=== PATIENT | female | born 1990 | race African-American/Black ===

== ENCOUNTER 2016-03-28 13:23 | Emergency (ER) | payer MEDICAID ==
--- NOTE | 2016-03-28 14:07 | NUR ---
PATIENT LEFT WITHOUT BEING SEEN BY DR. JIMENEZ. NO FURTHER CARE PROVIDED FOR PATIENT.
== END 2016-03-28 14:07 | disposition left against medical advice (07) ==
LOC: MED 13:23
DX: R11.10 Vomiting, unspecified (principal); Z53.21 Procedure and treatment not carried out due to patient leaving prior to being seen by health care provider

== ENCOUNTER 2016-03-28 18:51 | Emergency (ER) | payer MEDICAID ==
[~2016-03-28] VITALS: Ht 162.6 cm; Wt 49.9 kg
[2016-03-28 19:21] VITALS: BP 132/89
--- NOTE | 2016-03-28 21:12 | NUR ---
Patient ambulated to bed 02.
--- NOTE | 2016-03-28 21:13 | NUR ---
25 Y/O F HERE C/O ABD PAIN, N/V/D AND GENERAL WEAKNESS X 5 DAYS. DENIES ANY FEVER OR SOB. ER MD NOTIFIED. 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 O2 SAT 100 IN RA.
--- NOTE | 2016-03-28 21:15 | NUR ---
Dr. Reynoso evaluating patient at bedside.
[2016-03-28] MEDS ORDERED: NACL 0.9% 1,000 ML IV ONE (21:25)
[2016-03-28] MEDS ORDERED: ONDANSETRON 4 MG/2 ML VIAL IVP ONE (21:25)
[2016-03-28] MEDS ORDERED: MORPHINE SULFATE 2 MG/ML SYR IVP ONE (21:25)
[2016-03-28] MEDS ORDERED: NACL 0.9% 500 ML IV ONE (23:00)
[2016-03-28] MEDS ORDERED: oxyCODONE/APAP 5/325 MG 1 TAB TAB PO ONE (23:00)
[2016-03-28] MEDS ORDERED: POTASSIUM CHLORIDE 10 MEQ TABER PO ONE (23:25)
[2016-03-29 00:10] VITALS: BP 127/70
--- NOTE | 2016-03-29 00:10 | NUR ---
Patient discharged with v/s stable. Written and verbal after care instructions given and explained. Patient alert, oriented and verbalized understanding of instructions. Ambulatory with steady gait. All questions addressed prior to discharge. ID band removed. Patient advised to follow up with PMD OR RETURN TO ER IF CONDITION WORSENS Rx of ZOFRAN given. Patient educated on indication of medication including possible reaction and side effects. Opportunity to ask questions provided and answered.
== END 2016-03-29 00:10 | disposition home or self-care (01) ==
LOC: MED 18:55
DX: N93.9 Abnormal uterine and vaginal bleeding, unspecified (principal); A08.4 Viral intestinal infection, unspecified; F17.210 Nicotine dependence, cigarettes, uncomplicated; Z71.6 Tobacco abuse counseling
CPT/HCPCS: 36415; 80053; 81001; 81025; 83690; 85025; 96361; 96374; 96375; 99284; J2270; J2405; J7030

== ENCOUNTER 2016-07-04 13:22 | Emergency (ER) | payer MEDICAID ==
[~2016-07-04] VITALS: Ht 162.6 cm; Wt 49.9 kg
[2016-07-04 14:14] VITALS: BP 111/67
--- NOTE | 2016-07-04 15:20 | NUR ---
PATIENT LEFT WITHOUT BEING SEEN BY DR. MENDIOLA. NO FURTHER CARE PROVIDED FOR PATIENT.
== END 2016-07-04 15:20 | disposition left against medical advice (07) ==
LOC: MED 13:22
DX: R10.9 Unspecified abdominal pain (principal); Z53.21 Procedure and treatment not carried out due to patient leaving prior to being seen by health care provider

== ENCOUNTER 2018-01-16 11:35 | Emergency (ER) | payer MEDICAID ==
[~2018-01-16] VITALS: Ht 162.6 cm; Wt 49.9 kg
[2018-01-16 11:45] VITALS: BP 143/85
[2018-01-16] MEDS ORDERED: NACL 0.9% 1,000 ML IV SCH (12:13)
[2018-01-16] MEDS ORDERED: ONDANSETRON 4 MG/2 ML VIAL IVP ONE (12:15)
[2018-01-16 12:40] LABS: BASOPHILS % (AUTO) 0.3 % (0.0-2.0); EOSINOPHILS % (AUTO) 0.1 % (0.0-4.0); HEMATOCRIT 39.5 % (36-48); HEMOGLOBIN 13.2 g/dL (12.0-16.0); LYMPHOCYTES # (AUTO) 1.3 K/uL (2.5-16.5); LYMPHOCYTES % (AUTO) 12.7 % (20.5-51.1); MEAN CORPUSCULAR HEMOGLOBIN 31 pg (27-31); MEAN CORPUSCULAR HGB CONC 34 g/dL (33-37); MEAN CORPUSCULAR VOLUME 93.3 fL (80-94); MONOCYTES # (AUTO) 0.5 K/uL (0.8-1.0); MONOCYTES % (AUTO) 4.5 % (1.7-9.3); NEUTROPHILS # (AUTO) 8.5 K/uL (1.8-7.7); NEUTROPHILS % (AUTO) 82.4 % (42.2-75.2); PLATELET COUNT (AUTO) 237 K/uL (140-450); RED BLOOD CELL COUNT(AUTO) 4.23 MIL/uL (4.20-5.40); RED CELL DISTRIBUTION WIDTH 11.7 % (11.6-13.7); WHITE BLOOD COUNT (AUTO) 10.3 K/uL (4.8-10.8)
[2018-01-16 12:48] LABS: BILIRUBIN,URINE SMALL (NEGATIVE); BLOOD, URINE NEGATIVE (NEGATIVE); COLOR,URINE YELLOW (YELLOW); LEUKOCYTE ESTERASE ,URINE NEGATIVE (NEGATIVE); NITRITE, URINE NEGATIVE (NEGATIVE); UGLUCOSE NEGATIVE (NEGATIVE)
[2018-01-16 12:51] LABS: RBC,URINE 0-5 (RARE) /HPF (0-5); WBC,URINE 0-5 (RARE) /HPF (0-5)
[2018-01-16 12:52] LABS: APPEARANCE,URINE SLIGHTLY HAZY (CLEAR)
[2018-01-16 13:16] LABS: CARBON DIOXIDE 24.8 mmol/L (21-32); CREATININE 0.7 mg/dL (0.6-1.3); POTASSIUM 3.8 mmol/L (3.5-5.1)
[2018-01-16 13:22] LABS: ALBUMIN 4.1 g/dL (3.4-5.0); TOTAL BILIRUBIN 0.7 mg/dL (0.0-1.0)
[2018-01-16] MEDS ORDERED: ACETAMINOPHEN EXTRA STRENGTH 500 MG TAB PO ONE (14:45)
[2018-01-16 15:10] VITALS: BP 138/80
== END 2018-01-16 15:10 | disposition home or self-care (01) ==
LOC: MED 11:35
DX: O21.8 Other vomiting complicating pregnancy (principal); O26.899 Other specified pregnancy related conditions, unspecified trimester; R10.9 Unspecified abdominal pain; R42 Dizziness and giddiness; R53.1 Weakness; F17.210 Nicotine dependence, cigarettes, uncomplicated
CPT/HCPCS: 36415; 76801; 80053; 81001; 81025; 83690; 84702; 85025; 96361; 96374; 99284; J2405; J7030; Q0092

== ENCOUNTER 2018-02-10 12:31 | Emergency (ER) | payer MEDICAID ==
[~2018-02-10] VITALS: Ht 162.6 cm; Wt 47.6 kg
[2018-02-10 12:46] VITALS: BP 114/75
--- NOTE | 2018-02-10 13:15 | NUR ---
PATIENT AMBULATED TO BED 5
[2018-02-10 13:19] LABS: BASOPHILS % (AUTO) 0.4 % (0.0-2.0); EOSINOPHILS % (AUTO) 0.2 % (0.0-4.0); HEMATOCRIT 35.2 % (36-48); HEMOGLOBIN 11.9 g/dL (12.0-16.0); LYMPHOCYTES # (AUTO) 1.8 K/uL (2.5-16.5); LYMPHOCYTES % (AUTO) 22.2 % (20.5-51.1); MEAN CORPUSCULAR HEMOGLOBIN 31 pg (27-31); MEAN CORPUSCULAR HGB CONC 34 g/dL (33-37); MEAN CORPUSCULAR VOLUME 92.7 fL (80-94); MONOCYTES # (AUTO) 0.4 K/uL (0.8-1.0); MONOCYTES % (AUTO) 5.2 % (1.7-9.3); NEUTROPHILS # (AUTO) 5.8 K/uL (1.8-7.7); PLATELET COUNT (AUTO) 215 K/uL (140-450); RED CELL DISTRIBUTION WIDTH 11.6 % (11.6-13.7); WHITE BLOOD COUNT (AUTO) 8.1 K/uL (4.8-10.8)
[2018-02-10 13:28] LABS: APPEARANCE,URINE CLOUDY (CLEAR); BILIRUBIN,URINE NEGATIVE (NEGATIVE); BLOOD, URINE TRACE-I (NEGATIVE); COLOR,URINE YELLOW (YELLOW); LEUKOCYTE ESTERASE ,URINE NEGATIVE (NEGATIVE); NITRITE, URINE NEGATIVE (NEGATIVE); UGLUCOSE NEGATIVE (NEGATIVE)
[2018-02-10 13:30] LABS: RBC,URINE 0-5 (RARE) /HPF (0-5)
[2018-02-10 13:31] LABS: WBC,URINE 0-5 (RARE) /HPF (0-5)
[2018-02-10 13:45] LABS: ALBUMIN 3.6 g/dL (3.4-5.0); ANION GAP 12.2 (8-16); CARBON DIOXIDE 27.3 mmol/L (21-32); CREATININE 0.7 mg/dL (0.6-1.3); POTASSIUM 3.5 mmol/L (3.5-5.1); TOTAL BILIRUBIN 0.3 mg/dL (0.0-1.0)
--- NOTE | 2018-02-10 13:48 | NUR ---
Dr. Godinez evaluating patient at bedside.
--- NOTE | 2018-02-10 13:50 | NUR ---
27f bib boyfriend with c/o 09/21 umbilical region sharp pain radiating to epigastric x1 wk with constipation, non bloody vomiting, headache, subjective fevers x 2 wks. Pt sts is 10-11wks , A2 LMP 11/21/17. Pt denies any vaginal bleeding. Pt is aox4 to person, place, time, and situation. RR are even and unlabored. NAD. Awating er md pena. Will continue to monitor.
[2018-02-10 13:55] LABS: BILIRUBIN,DIRECT 0.1 mg/dL (0.0-0.3)
--- NOTE | 2018-02-10 14:03 | NUR ---
L&D RN at bedside for heart tones.
--- NOTE | 2018-02-10 14:10 | NUR ---
unable to detect heart tones via doppler. notified er md jarquin.
[2018-02-10 16:58] VITALS: BP 114/75
--- NOTE | 2018-02-10 16:59 | NUR ---
Patient discharged with v/s stable. Written and verbal after care instructions given and explained. Patient verbalized understanding. Ambulatory with steady gait. All questions addressed prior to discharge. Advised to follow up with PMD.
== END 2018-02-10 16:50 | disposition home or self-care (01) ==
LOC: MED 12:31
DX: O26.891 Other specified pregnancy related conditions, first trimester (principal); O21.9 Vomiting of pregnancy, unspecified; R10.30 Lower abdominal pain, unspecified; R10.13 Epigastric pain; K59.00 Constipation, unspecified; Z3A.11 11 weeks gestation of pregnancy
CPT/HCPCS: 36415; 76817; 80053; 80076; 81001; 81025; 83690; 84702; 85025; 86900; 86901; 99284; Q0092

== ENCOUNTER 2021-08-14 08:05 | Emergency (ER) | payer MEDICAID ==
[~2021-08-14] VITALS: Ht 162.6 cm; Wt 51.7 kg
[2021-08-14 08:12] VITALS: BP 138/77
--- NOTE | 2021-08-14 08:16 | NUR ---
DR MOREL IN TRIAGE FOR EVAL
[2021-08-14] MEDS ORDERED: ONDANSETRON 4 MG/2 ML VIAL IVP ONE (08:20)
[2021-08-14] MEDS ORDERED: NACL 0.9% 1,000 ML IV ONE (08:20)
--- NOTE | 2021-08-14 08:21 | NUR ---
30 Y/O FEMALE BIBS FROM HOME, C/O N/V ABD PAIN AND HAX 3 DAYS. DENIES DIARRHEA. NO BLOOD IN VOMIT OR STOOL. PT REPORTS DIFFUSE UPPER ABDOMINAL PAIN 09/21. DENIES TRAUMA. A/OX4, GCS-15; UNLABORED BREATHING, SPEAKING IN FULL SENTENCES; AMBULATORY WITHOUT ASSISTANCE. NKA PMH: DENIES
--- NOTE | 2021-08-14 08:25 | NUR ---
SKIVER BLOCKERS AT BEDSIDE
[2021-08-14 08:38] LABS: BASOPHILS % (AUTO) 0.3 % (0.0-2.0); EOSINOPHILS % (AUTO) 0.1 % (0.0-4.0); HEMATOCRIT 42.4 % (36-48); HEMOGLOBIN 14.5 g/dL (12.0-16.0); LYMPHOCYTES # (AUTO) 1.6 K/uL (2.5-16.5); MEAN CORPUSCULAR HEMOGLOBIN 32 pg (27-31); MEAN CORPUSCULAR HGB CONC 34 g/dL (33-37); MEAN CORPUSCULAR VOLUME 92.6 fL (80-94); MONOCYTES # (AUTO) 0.6 K/uL (0.8-1.0); MONOCYTES % (AUTO) 5.6 % (1.7-9.3); NEUTROPHILS # (AUTO) 7.7 K/uL (1.8-7.7); PLATELET COUNT (AUTO) 262 K/uL (140-450); RED BLOOD CELL COUNT(AUTO) 4.58 MIL/uL (4.20-5.40); RED CELL DISTRIBUTION WIDTH 12.4 % (11.6-13.7); WHITE BLOOD COUNT (AUTO) 9.9 K/uL (4.8-10.8)
[2021-08-14 08:45] LABS: APPEARANCE,URINE CLOUDY (CLEAR); BILIRUBIN,URINE 1+ (NEGATIVE); BLOOD, URINE 2+ (NEGATIVE); COLOR,URINE YELLOW (YELLOW); LEUKOCYTE ESTERASE ,URINE NEGATIVE (NEGATIVE); NITRITE, URINE POSITIVE (NEGATIVE); UGLUCOSE NEGATIVE (NEGATIVE)
[2021-08-14 09:02] LABS: URINE AMORPHOUS URATE 1+ /HPF (None Seen)
[2021-08-14 09:11] LABS: ALBUMIN 4.7 g/dL (3.4-5.0); ANION GAP 13.5 (8-16); CARBON DIOXIDE 25.8 mmol/L (21-32); CREATININE 1.1 mg/dL (0.6-1.3); POTASSIUM 3.3 mmol/L (3.5-5.1); TOTAL BILIRUBIN 0.7 mg/dL (0.0-1.0)
[2021-08-14] MEDS ORDERED: cefTRIAXone 1,000 MG VIAL ONE (09:48)
[2021-08-14] MEDS ORDERED: ONDA-188 SL (10:02)
[2021-08-14] MEDS ORDERED: NITR100C7 PO (10:02)
--- NOTE | 2021-08-14 10:06 | NUR ---
ER MD AT BEDSIDE DISCUSSING PT RESULTS
[2021-08-14 10:36] VITALS: BP 134/72
--- NOTE | 2021-08-14 10:37 | NUR ---
Patient discharged with v/s stable. Written and verbal after care instructions given and explained. Patient alert, oriented and verbalized understanding of instructions. Ambulatory with steady gait. All questions addressed prior to discharge. ID band removed. Patient advised to follow up with PMD. Rx of MACROBID 100MG CAP AND ZOFRAN ODT given. Patient educated on indication of medication including possible reaction and side effects. Opportunity to ask questions provided and answered. VSS, A/OX4, UNLABORED BREATHING, AMBULATORY, AND CALM DEMEANOR.
== END 2021-08-14 10:37 | disposition home or self-care (01) ==
LOC: MED 08:05
DX: N12 Tubulo-interstitial nephritis, not specified as acute or chronic (principal); R11.10 Vomiting, unspecified; Z79.899 Other long term (current) drug therapy; Z79.2 Long term (current) use of antibiotics
CPT/HCPCS: 36415; 80053; 81001; 83605; 85025; 87040; 87086; 96361; 96365; 96375; 99284; J0696; J2405; J7030

== ENCOUNTER 2023-12-01 07:42 | Emergency (ER) | payer MEDICAID ==
[~2023-12-01] VITALS: Ht 162.6 cm; Wt 45.4 kg
[~2023-12-01 07:42] MED LIST: NITR100C7 PO; ONDA-188 SL
[2023-12-01 07:44] VITALS: BP 143/85; PULSE 62; RESP 16; TEMP 97.4; O2SAT 100
[2023-12-01 08:24] LABS: BILIRUBIN,URINE NEGATIVE (NEGATIVE); BLOOD, URINE 3+ (NEGATIVE); COLOR,URINE YELLOW (YELLOW); LEUKOCYTE ESTERASE ,URINE NEGATIVE (NEGATIVE); NITRITE, URINE NEGATIVE (NEGATIVE); PROTEIN,URINE 1+ (NEGATIVE); UGLUCOSE NEGATIVE (NEGATIVE); UROBILINOGEN,URINE 0.2 EU/dL (0.2 - 1)
[2023-12-01 08:25] LABS: APPEARANCE,URINE HAZY (CLEAR)
[2023-12-01] MEDS: NACL 0.9% 1,000 ML IV ONE (08:27)
[2023-12-01] MEDS: ONDANSETRON 4 MG/2 ML VIAL IVP ONE (08:28)
[2023-12-01 08:32] LABS: BASOPHILS % (AUTO) 0.3 % (0.0-2.0); EOSINOPHILS % (AUTO) 0.1 % (0.0-4.0); HEMATOCRIT 36.8 % (36-48); HEMOGLOBIN 12.6 g/dL (12.0-16.0); LYMPHOCYTES # (AUTO) 1.6 K/uL (2.5-16.5); LYMPHOCYTES % (AUTO) 14.9 % (20.5-51.1); MEAN CORPUSCULAR HEMOGLOBIN 32 pg (27-31); MEAN CORPUSCULAR HGB CONC 34 g/dL (33-37); MEAN CORPUSCULAR VOLUME 93.9 fL (80-94); MONOCYTES # (AUTO) 0.5 K/uL (0.8-1.0); MONOCYTES % (AUTO) 4.9 % (1.7-9.3); NEUTROPHILS # (AUTO) 8.7 K/uL (1.8-7.7); NEUTROPHILS % (AUTO) 79.8 % (42.2-75.2); PLATELET COUNT (AUTO) 290 K/uL (140-450); RED BLOOD CELL COUNT(AUTO) 3.92 MIL/uL (4.20-5.40); RED CELL DISTRIBUTION WIDTH 12.4 % (11.6-13.7); WHITE BLOOD COUNT (AUTO) 10.9 K/uL (4.8-10.8)
[2023-12-01 08:32] LABS: BACTERIA,URINE 3+ /HPF (None Seen); MUCUS,URINE 2+ /LPF (None Seen); RBC,URINE 11-20 (MOD) /HPF (0-5)
[2023-12-01 09:07] LABS: ANION GAP 15.1 (8-16); CALCIUM 9.2 mg/dL (8.5-10.1); CREATININE 0.9 mg/dL (0.6-1.3); POTASSIUM 3.1 mmol/L (3.5-5.1)
[2023-12-01 09:12] LABS: BILIRUBIN,DIRECT 0.2 mg/dL (0.0-0.3); TOTAL BILIRUBIN 0.8 mg/dL (0.0-1.0); TOTAL PROTEIN, SERUM 7.7 g/dL (6.4-8.2)
[2023-12-01] MEDS: POTASSIUM CHLORIDE 10 MEQ TABER PO ONE (10:16)
[2023-12-01] MEDS ORDERED: DOXY1TCP PO (10:17)
[2023-12-01] MEDS ORDERED: PNV1TABL5 PO (10:17)
[2023-12-01] MEDS ORDERED: CEPH-588 PO (10:17)
[2023-12-01 10:25] VITALS: BP 112/56; PULSE 57; RESP 16; TEMP 98.5; O2SAT 100
== END 2023-12-01 10:25 | disposition home or self-care (01) ==
LOC: MED 07:42
DX: O00.01 Abdominal pregnancy with intrauterine pregnancy (principal); O23.41 Unspecified infection of urinary tract in pregnancy, first trimester; N39.0 Urinary tract infection, site not specified; O99.281 Endocrine, nutritional and metabolic diseases complicating pregnancy, first trimester; E87.6 Hypokalemia; Z3A.09 9 weeks gestation of pregnancy; Z79.899 Other long term (current) drug therapy
CPT/HCPCS: 36415; 76801; 80048; 80076; 81001; 81025; 83690; 84702; 85025; 87086; 87186; 96361; 96374; 99285; J2405; J7030; Q0092